=== PATIENT | male | born 1995 | race Asian ===

== ENCOUNTER → 2018-02-21 | Outpatient (CLI) | payer OTHER ==
[2018-02-22 09:32] LABS: RUBEOLA (MEASLES) IGG >300.0 AU/mL (Immune >29.9)
[2018-02-25 19:14] LABS: RUBEOLA (MEASLES) IGM <0.80 AU (0.00-0.79)
== END | disposition home or self-care (01) ==
LOC: EMPHLTH 10:58
PROVIDERS: ATTEND Internal Medicine
DX: Z02.1 Encounter for pre-employment examination (principal)
CPT/HCPCS: 86706; 86735; 86762; 86765; 86787

== ENCOUNTER → 2020-08-23 | Outpatient (CLI) | payer OTHER ==
[2020-08-25 02:11] LABS: RUBEOLA (MEASLES) IGG >300.0 AU/mL (Immune >16.4)
== END | disposition home or self-care (01) ==
LOC: LABPV 11:04
PROVIDERS: ATTEND Internal Medicine
DX: Z02.1 Encounter for pre-employment examination (principal)
CPT/HCPCS: 86706; 86735; 86762; 86765; 86787

== ENCOUNTER 2023-05-28 13:02 | Emergency (ER) | payer OTHER ==
[~2023-05-28] VITALS: Ht 167.6 cm; Wt 78.6 kg
[2023-05-28 13:09] VITALS: BP 118/72; PULSE 73; RESP 16; TEMP 97.7
[2023-05-28 13:23] LABS: COVID AG,FIA SOURCE NASAL SWAB
[2023-05-28 14:02] LABS: SARS-COV2 (COVID) ANTIGEN,FIA Negative (Negative)
[2023-05-28 14:04] LABS: INFLUENZA TYPE A NEGATIVE FOR TYPE A (NEGATIVE); INFLUENZA TYPE B NEGATIVE FOR TYPE B (NEGATIVE)
[2023-05-28 14:10] LABS: RAPID GROUP A STREP NEGATIVE (NEGATIVE)
[2023-05-28] MEDS ORDERED: ACET-2080 PO (14:38)
== END 2023-05-28 15:49 | disposition home or self-care (01) ==
LOC: EMS 13:37
DX: J02.8 Acute pharyngitis due to other specified organisms (principal); Z20.822 Contact with and (suspected) exposure to COVID-19
CPT/HCPCS: 99283; 87426; 87430; 87804; C9803

== ENCOUNTER 2023-07-05 14:40 | Emergency (ER) | payer OTHER ==
[~2023-07-05] VITALS: Ht 170.2 cm; Wt 77.3 kg
[~2023-07-05 14:40] MED LIST: ACET-2080 PO
[2023-07-05 14:46] VITALS: BP 132/84; PULSE 82; RESP 16; TEMP 97.8
[2023-07-05 16:35] LABS: INFLUENZA A-RTPCR,COMBO NEGATIVE FOR FLU A (NEGATIVE); INFLUENZA B-RTPCR,COMBO NEGATIVE FOR FLU B (NEGATIVE); RESPIRATORY SYNCYTIAL VRS-PCR NEGATIVE (NEGATIVE); SARS COVID19 RTPCR, COMBO NEGATIVE (NEGATIVE)
== END 2023-07-05 15:34 | disposition left against medical advice (07) ==
LOC: EMS 14:42
DX: R07.9 Chest pain, unspecified (principal); Z20.822 Contact with and (suspected) exposure to COVID-19; Z53.21 Procedure and treatment not carried out due to patient leaving prior to being seen by health care provider
CPT/HCPCS: 0241U; 99281; C9803; Z7502